=== PATIENT | male | born 2005 | race Caucasian/White ===

== ENCOUNTER 2024-01-30 19:23 | Emergency (ER) | payer MEDICAID, OTHER, SELFPAY ==
[2024-01-30 19:25] VITALS: BP 124/88
[2024-01-30 20:30] VITALS: BP 112/70
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
== END 2024-01-30 21:53 | disposition home or self-care (01) ==
LOC: EMR 19:23
PROVIDERS: EMERGENCY PHYSICIAN Emergency Medicine; FAMILY PHYSICIAN Psychiatry & Neurology Child & Adolescent Psychiatry
DX: S01.01XA Laceration without foreign body of scalp, initial encounter (principal); S01.411A Laceration without foreign body of right cheek and temporomandibular area, initial encounter; S09.90XA Unspecified injury of head, initial encounter; W22.01XA Walked into wall, initial encounter
CPT/HCPCS: 99284; 12001; 12011; 70450